=== PATIENT | male | born 1985 | race Two or more races ===

== ENCOUNTER 2021-12-16 16:59 | Emergency (ER) | payer MEDICAID ==
[~2021-12-16] VITALS: Ht 188 cm; Wt 85.0 kg
[2021-12-16 17:39] VITALS: BP 140/82
[2021-12-16] MEDS ORDERED: cefTRIAXone SOD 1,000 MG VL IM ONE (20:00)
[2021-12-16] MEDS ORDERED: CEPH-510 PO (20:01)
[2021-12-16] MEDS ORDERED: ACET-1158 PO (20:01)
[2021-12-16] MEDS ORDERED: NAP500T PO (20:08)
== END 2021-12-16 20:24 | disposition home or self-care (01) ==
LOC: ER 16:59
DX: L03.115 Cellulitis of right lower limb (principal); Z79.899 Other long term (current) drug therapy
CPT/HCPCS: 96372; 99283; J0696

== ENCOUNTER 2023-12-07 14:56 | Emergency (ER) | payer SELFPAY ==
[~2023-12-07] VITALS: Ht 188 cm; Wt 83.0 kg
[~2023-12-07 14:56] MED LIST: CEPH-510 PO; NAP500T PO
[2023-12-07 16:35] VITALS: BP 113/59; PULSE 50; RESP 15; TEMP 98.7; O2SAT 98
== END 2023-12-07 16:45 | disposition home or self-care (01) ==
LOC: ER 14:56
DX: S61.012A Laceration without foreign body of left thumb without damage to nail, initial encounter (principal); W26.0XXA Contact with knife, initial encounter; Y93.89 Activity, other specified; Y92.89 Other specified places as the place of occurrence of the external cause; Y99.8 Other external cause status
CPT/HCPCS: 12001